=== PATIENT | male | born 1965 | race Caucasian/White ===

== ENCOUNTER 2023-08-07 00:43 | Day surgery (SDC) | payer OTHER, SELFPAY ==
[2023-07-30 09:40] VITALS: BMI 29.7
--- NOTE | 2023-07-30 09:48 | PC.NURSE ---
Report to the Outpatient Waiting Room, entrance under the green pavilion located off [facility], at time 1000 on date 08/07/23. Planned Procedure Time: 1200. Time changes happen often and if your time is changed the preop area will call you the afternoon before. - You and your visitor will be asked to self-screen and do not enter if you have any COVID symptoms. - A mask is optional within the hospital at this time. Patients may have clear liquids (water, carbonated beverages, clear teas, apple juice) until 3 hours prior to surgery with a maximum of 20 ounces. - No food from midnight until time of surgery Take the following medications with a SIP of water the morning of surgery: TYLENOL OR PAIN PILL IF NEEDED DO NOT STOP ANY OF YOUR OTHER PRESCRIPTION MEDICATIONS PRIOR TO SURGERY ?EXCEPT THE FOLLOWING Medications to discontinue per physician: N/A Date to take last dose: N/A Please no make-up, nail albanian, hairspray, perfume, deodorant, or body powder the day of surgery. No jewelry (including any body piercings) or valuables the day of surgery, leave them at home. Please take a shower or bath the night before, or the morning of, surgery with an antibacterial soap. Wear comfortable, loose fitting clothing. - Jewelry must be removed prior to entering the operating room. Rings and piercings that are not removed may be cut off. - The hospital will not accept responsibility for valuables. - Please leave all valuables, including medications, at home the day of surgery. If you are going home after surgery, a licensed [employer] driver must drive you home. - NO public transportation without another adult if you receive anesthesia. - We recommend that an adult stay with you for 24 hours following discharge. - We also recommend that you do not drive, make important decision, drink alcoholic beverages, or take any drugs that were not prescribed by your health care provider for at least 24 hours after your discharge time. Follow any additional instructions given to you from your surgeon. If you or anyone in your household have experienced Covid symptoms in the past week, please notify your surgeon or the nurse liaison at the phone number below for possible testing. Telephone instructions given to ARLINE MERIDA and asked if any additional questions and then verbalized understanding. Patient advised to call surgeon office or pre surgery nurse liaison [phone] if any additional questions.
[2023-08-07] VITALS (8 sets, daily range): BP systolic 131–194; BP diastolic 72–109; PULSE 51–97; RESP 12–23; TEMP 36.3–36.6; O2SAT 100
[2023-08-07] MEDS: LACTATED RINGERS 1,000 ML 30 ML IV CONT ×2 (10:30→14:10)
[2023-08-07 10:59] LABS: Amylase 102 U/L (30-110)
[2023-08-07] MEDS: ACETAMINOPHEN 500 MG TABLET 1000 MG PO (11:00)
[2023-08-07] MEDS: SCOPOLAMINE 1 MG PATCH 1 PATCH TRANSDERM (11:00)
[2023-08-07] MEDS: KETOROLAC 15 MG/ML VIAL (*BKC) IV PUSH (11:00)
--- NOTE | 2023-08-07 11:49 | WPDHPUPDATE1 ---
History and Physical Update Update Date/Time: 08/07/23 11:49 History and Physical has been reviewed, including an updated exam of the patient. There are NO changes in the patient's condition. Risks, benefits, and alternatives have been discussed and questions answered. Patient agrees to proceed with procedure.
--- NOTE | 2023-08-07 12:07 | P.PNAN_ITS ---
Anes - Initial Pre Proc Eval Procedure: Operation Date: 08/07/23 12:00 Proposed Procedures p Laparoscopic Cholecystectomy - Pedro Lincoln MD Date/Time: 08/07/23 12:07 Surgeon: Pedro Lincoln MD Pre Op Diagnosis: Sym Cholelithiasis Patient Data Age: 58 Gender: M Height: 1.85 m Weight: 99.9 kg Last Vital Signs Temp 97.3 F L 08/07/23 10:30 Pulse 63 08/07/23 10:30 Resp 18 08/07/23 10:30 BP 131/76 08/07/23 10:30 Pulse Ox 100 08/07/23 10:30 O2 Del Method Room Air 08/07/23 10:30 Allergies Allergy/AdvReac Type Severity Reaction Status Date / Time Iodinated Contrast Media Allergy Unknown Hives Verified 08/07/23 11:32 Home Medications Medication Instructions Recorded Confirmed Type acetaminophen 500 mg tablet 500 mg PO Q6H PRN Pain 07/25/23 08/07/23 History (Tylenol Extra Strength) hydrocodone 5 mg-acetaminophen 325 1 tablet PO Q6H PRN Pain 07/30/23 08/07/23 History mg tablet Laboratory Tests 08/07/23 10:22 Amylase 102 U/L (30-110) Patient hx anesthesia problems: post op nausea/vomiting (scopolamine patch applied) Family hx anesthesia problems: none Results Review: All pre-operative results and documents have been reviewed as part of the pre- operative evaluation. [facility] Past Medical History Medical History Anxiety Surgical History Surgical History H/O Spinal surgery x2 History of inguinal hernia repair History of vasectomy Family History Family History Other Cancer Cerebrovascular accident Diabetes mellitus Heart disease Social History Social History (Updated 07/25/23 @ 13:40 by Temi Andino MA) Smoking packs per day: 1 Smoking cigarettes per day: 20.0 Years smoked: 20 Smoking pack-years: 20.00 Smoking status: Former smoker Tobacco type: cigarettes Smoking end date: 11/01/03 Alcohol intake: current Drinks per week: 3 Alcohol use details: socially Substance use: never Substance use type: does not use Living arrangements: with family Occupation/Education: occupation 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 Informed Consent: The patient's anesthetic plan and its attendant risks and benefits were discussed with the patient/family/POA. Questions were solicited and answers provided to the satisfaction of the patient/family/POA.
[2023-08-07] MEDS: ceFAZolin 2 GM/D5W 50 ML 2 GM/50 ML BAG IVPB (12:12)
[2023-08-07] MEDS: LIDO 1%/EPINEPHRINE 1:100,000 50 ML VIAL 25 ML INFILTRATE (12:37)
[2023-08-07] MEDS: fentaNYL CITRATE INJ (*CRX) 100 MCG/2 ML VIAL 25 MCG IV PUSH ×3 (14:23→14:37)
--- NOTE | 2023-08-07 14:27 | W.PM.PROC2 ---
Procedure Note - Detailed Date of Procedure 08/07/23 Pre-op Diagnosis Symptomatic Cholelithiasis Post-op Diagnosis Other ( chronic cholecystitis secondary to cholelithiasis.) Procedure Performed Laparoscopic cholecystectomy Surgeon Pedro Lincoln MD Classics Professor SIMONE Doran Anesthesia General Indications Patient is a 58-year-old gentleman who has had intermittent more frequent issues with right upper quadrant abdominal pain after eating. Mostly spicy foods and fatty foods cause him to have more symptoms. He had abdominal ultrasound showing multiple gallstones the gallbladder with sludge but no evidence of gallbladder wall thick. CT scan abdomen pelvis also showed thickened gallbladder with multiple gallstones but no phlegmon right upper quadrant. Liver enzymes were normal no elevated white blood cell count when he presented to the emergency room. He presents now for outpatient elective laparoscopic cholecystectomy. Findings The patient had multiple, too numerous to count small gallstones within the gallbladder. There was also quite a bit of gallbladder sludge. The gallbladder wall was thickened with some omental adhesions to it consistent with chronic cholecystitis secondary to cholelithiasis. Description of Procedure After informed consent was obtained patient brought to the operating room was placed in supine position and general endotracheal anesthesia was administered. The abdomen is then prepped and draped usual sterile fashion. A time-out was then performed correctly identifying the patient as well as procedure to be performed. He was given perioperative IV antibiotics. I entered the abdomen left upper quadrant utilizing a 5mm Optiview port. Once inside the abdomen insufflated to adequate pneumoperitoneum of 15mmHg of CO2. I placed additional trocar ports to include a 5mm periumbilical trocar port as well as a 10mm epigastric trocar and then 2 more 5mm right subcostal trocar ports. I then switched the camera to the periumbilical trocar port and then looking into the upper portions and my saw the gallbladder which was markedly thickened and chronically inflamed. There were omental adhesions to the gallbladder suggestive of prior acute inflammation I was able to hold the gallbladder with laparoscopic grasper at the dome and then stripped down the omental adhesions to the gallbladder wall bluntly. A 2nd grasper was then used to hold the gallbladder at the infundibulum. I then proceeded to dissect down along the infundibulum of the gallbladder if I would appeared to be the cystic duct. The cystic duct was then dissected out circumferentially. The cystic artery was identified was dissected out circumferentially as well. Posterior wall the gallbladder at the infundibulum dissected free of the liver until the critical view was obtained. at this point I placed 2 clips proximally cystic duct and 2 clips distally high on infundibular gallbladder. The cystic duct was then divided with Endo Lonny. In a similar fashion cystic artery was clipped and divided as well. The gallbladder was then resected off the liver electrocautery. Due to the chronically inflamed gallbladder wall, there was not a clear dissection plane between the posterior wall the gallbladder and the liver. The gallbladder wall was entered and a few small gallstones spilled out of the gallbladder which were quickly suctioned out of the abdomen. There was some spillage of gallbladder sludge. As I continued my dissection of the gallbladder off the liver bed there was a small amount of bleeding from the liver bed which was could trouble electrocautery once the gallbladder was free from liver is placed into an Endo-Catch bag and brought out through the epigastric port site. Gallbladder and the remaining gallstones within were sent to pathology for examination. I then irrigated out the gallbladder fossa sterile saline solution. The raw surface of the gallbladder bed was
[2023-08-07] MEDS: ONDANSETRON INJ 4 MG/2 ML VIAL IV PUSH (15:02)
[2023-08-07] MEDS: oxyCODONE HCL (*CRX) 5 MG TAB IR PO (15:31)
== END 2023-08-07 16:14 | disposition home or self-care (01) ==
PROVIDERS: PCP Family Medicine; Visit Provider Surgery
PROC: 0FT44ZZ Resection of Gallbladder, Percutaneous Endoscopic Approach (ICD-10-PCS; CPT 47562; principal; 2023-08-07 12:00)
DX: K80.00 Calculus of gallbladder with acute cholecystitis without obstruction (principal); Z87.891 Personal history of nicotine dependence
CPT/HCPCS: 47562; 36415; 82150; 88304; A9270; J0330; J0690; J1100; J1200; J1596; J1885; J2001; J2250; J2405; J2704; J3010; J7120